=== PATIENT | female | born 1945 | race Caucasian/White ===

== ENCOUNTER 2017-11-21 04:45 | Inpatient (IN) | payer OTHER ==
[2017-11-21] MEDS ORDERED: DEXTROSE 50% 50 ML SYRINGE IV (05:30)
[2017-11-21] MEDS ORDERED: GLUCOSE GEL 15 GRAM TUBE PO ×2 (05:30)
[2017-11-21] MEDS ORDERED: ONDANSETRON 4 MG INJ IV (05:30)
[2017-11-21] MEDS ORDERED: GLUCOSE GEL 15 GRAM TUBE BUCCAL (05:30)
[2017-11-21] MEDS ORDERED: GLUCAGON 1 MG INJ IM (05:30)
[2017-11-21 06:10] LABS: ADD MAN DIFF? NO
[2017-11-21] MEDS: morphine 2 MG INJ IV ×4 (06:22→19:08)
[2017-11-21 06:29] LABS: BASOPHIL # 0.1 10^3/ul (0.0-0.1); BASOPHILS % 0.5 % (0.0-2.0); EOSINOPHILS # 0.3 10^3/ul (0.0-0.5); EOSINOPHILS % 2.3 % (0.0-7.0); HEMATOCRIT 26.7 % (37.0-47.0); HEMOGLOBIN 8.6 g/dl (12.0-16.0); LYMPHOCYTES # 1.8 10^3/ul (0.8-2.9); LYMPHOCYTES % 16.4 % (15.0-51.0); MEAN CORPUSCULAR HEMOGLOBIN 31.2 pg (29.0-33.0); MEAN CORPUSCULAR HGB CONC 32.2 g/dl (32.0-37.0); MEAN CORPUSCULAR VOLUME 96.7 fl (82.0-101.0); MONOCYTE # 0.8 10^3/ul (0.3-0.9); NEUTROPHIL # 8.1 10^3/ul (1.6-7.5); NEUTROPHILS % 73.4 % (39.0-77.0); PLATELET COUNT 195 10^3/UL (140-415); RED BLOOD COUNT 2.76 10^6/ul (4.20-5.40); RED CELL DISTRIBUTION WIDTH 12.1 % (11.5-14.5)
[2017-11-21 06:29] LABS: WHITE BLOOD COUNT 11.1 10^3/ul (4.8-10.8)
[2017-11-21 06:58] LABS: ANION GAP 17 (8-16); BLOOD UREA NITROGEN 34 mg/dl (7-20); CALCIUM 8.8 mg/dl (8.4-10.2); CARBON DIOXIDE 21 mmol/L (21-31); CHLORIDE 112 mmol/L (97-110); CREATININE 1.88 mg/dl (0.44-1.00); GLUCOSE 197 mg/dl (70-220); MAGNESIUM 2.5 mg/dl (1.7-2.5); PHOSPHORUS 5.3 mg/dl (2.5-4.9); SODIUM 145 mmol/L (135-144)
[2017-11-21] MEDS: INSULIN ASPART [NOVOLOG] 3 ML PEN SC ×3 (08:56→17:55)
[2017-11-21] MEDS ORDERED: NACL 0.9% 3 ML SYG IV (10:00)
[2017-11-21] MEDS ORDERED: ALBUTEROL/IPRATROPIUM (NEB) 3 ML AMP HHN (10:00)
[2017-11-21] MEDS: SOD CHLORIDE 0.9% 1,000 ML IV (10:30)
[2017-11-21] MEDS: HYDROCHLOROTHIAZIDE 25 MG TAB PO (11:22)
[2017-11-21] MEDS: LOSARTAN 50 MG TAB PO (11:23)
[2017-11-21] MEDS: SOD CHLORIDE 0.45% 1,000 ML IV ×2 (15:20→23:52)
[2017-11-21 18:49] LABS: TROPONIN-I < 0.012 ng/ml (0.000-0.120)
[2017-11-21] MEDS: METOPROLOL 25 MG TAB PO (21:02)
[2017-11-22 01:57] LABS: TROPONIN-I < 0.012 ng/ml (0.000-0.120)
[2017-11-22] MEDS ORDERED: ACCU-CHEK XX (02:00)
[2017-11-22] MEDS: morphine 2 MG INJ IV ×3 (02:54→20:00)
[2017-11-22 05:24] LABS: ADD MAN DIFF? NO
[2017-11-22 05:36] LABS: WHITE BLOOD COUNT 8.5 10^3/ul (4.8-10.8)
[2017-11-22 05:36] LABS: BASOPHIL # 0.1 10^3/ul (0.0-0.1); BASOPHILS % 0.6 % (0.0-2.0); EOSINOPHILS # 0.4 10^3/ul (0.0-0.5); EOSINOPHILS % 4.9 % (0.0-7.0); HEMATOCRIT 22.5 % (37.0-47.0); HEMOGLOBIN 7.5 g/dl (12.0-16.0); LYMPHOCYTES # 2.9 10^3/ul (0.8-2.9); LYMPHOCYTES % 33.7 % (15.0-51.0); MEAN CORPUSCULAR HEMOGLOBIN 32.3 pg (29.0-33.0); MEAN CORPUSCULAR HGB CONC 33.3 g/dl (32.0-37.0); MEAN PLATELET VOLUME 10.8 fl (7.4-10.4); MONOCYTE # 0.7 10^3/ul (0.3-0.9); MONOCYTES % 8.5 % (0.0-11.0); NEUTROPHIL # 4.4 10^3/ul (1.6-7.5); NEUTROPHILS % 51.9 % (39.0-77.0); PLATELET COUNT 175 10^3/UL (140-415); RED BLOOD COUNT 2.32 10^6/ul (4.20-5.40); RED CELL DISTRIBUTION WIDTH 11.9 % (11.5-14.5)
[2017-11-22 05:53] LABS: HEMOGLOBIN A1C 5.9 % (0-5.9)
[2017-11-22 06:00] LABS: ALANINE AMINOTRANSFERASE 22 IU/L (13-69); ALBUMIN 3.2 g/dl (3.3-4.9); ALBUMIN/GLOBULIN RATIO 1.18; ALKALINE PHOSPHATASE 98 IU/L (42-121); ANION GAP 15 (8-16); ASPARTATE AMINO TRANSFERASE 19 IU/L (15-46); BLOOD UREA NITROGEN 26 mg/dl (7-20); CALCIUM 8.3 mg/dl (8.4-10.2); CARBON DIOXIDE 25 mmol/L (21-31); CHLORIDE 106 mmol/L (97-110); CREATININE 1.95 mg/dl (0.44-1.00); GLUCOSE 101 mg/dl (70-220); MAGNESIUM 2.2 mg/dl (1.7-2.5); PHOSPHORUS 4.5 mg/dl (2.5-4.9); SODIUM 141 mmol/L (135-144); TOTAL PROTEIN 5.9 g/dl (6.1-8.1)
[2017-11-22 06:39] LABS: TROPONIN-I < 0.012 ng/ml (0.000-0.120)
[2017-11-22] MEDS: INSULIN ASPART [NOVOLOG] 3 ML PEN SC ×3 (07:50→17:55)
[2017-11-22] MEDS: METOPROLOL 25 MG TAB PO ×2 (08:42→22:32)
[2017-11-22] MEDS: HYDROCHLOROTHIAZIDE 25 MG TAB PO (08:42)
[2017-11-22] MEDS: ACETAMINOPHEN 325 MG TAB PO ×3 (08:43→23:24)
[2017-11-22] MEDS: LOSARTAN 50 MG TAB PO (08:43)
[2017-11-22] MEDS ORDERED: NON-FORMULARY/PATIENT OWN MED (Losartan-Hydrochlorothiazide (Losartan-HCTZ) 1 TAB) PO (09:00)
[2017-11-22] MEDS: SOD CHLORIDE 0.45% 1,000 ML IV ×2 (09:49→20:05)
[2017-11-22 22:45] LABS: IMMEDIATE SPIN CROSSMATCH 1 2
[2017-11-23] MEDS: SOD CHLORIDE 0.45% 1,000 ML IV (02:15)
[2017-11-23 05:37] LABS: ADD MAN DIFF? NO
[2017-11-23 05:42] LABS: BASOPHIL # 0.1 10^3/ul (0.0-0.1); BASOPHILS % 0.6 % (0.0-2.0); EOSINOPHILS # 0.5 10^3/ul (0.0-0.5); EOSINOPHILS % 5.4 % (0.0-7.0); HEMATOCRIT 27.9 % (37.0-47.0); HEMOGLOBIN 9.5 g/dl (12.0-16.0); LYMPHOCYTES # 2.5 10^3/ul (0.8-2.9); LYMPHOCYTES % 28.2 % (15.0-51.0); MEAN CORPUSCULAR HEMOGLOBIN 31.3 pg (29.0-33.0); MEAN CORPUSCULAR HGB CONC 34.1 g/dl (32.0-37.0); MEAN CORPUSCULAR VOLUME 91.8 fl (82.0-101.0); MEAN PLATELET VOLUME 10.9 fl (7.4-10.4); MONOCYTE # 0.8 10^3/ul (0.3-0.9); MONOCYTES % 9.4 % (0.0-11.0); NEUTROPHILS % 56.1 % (39.0-77.0); PLATELET COUNT 154 10^3/UL (140-415); RED BLOOD COUNT 3.04 10^6/ul (4.20-5.40); RED CELL DISTRIBUTION WIDTH 13.4 % (11.5-14.5)
[2017-11-23 05:42] LABS: WHITE BLOOD COUNT 8.9 10^3/ul (4.8-10.8)
[2017-11-23 05:54] LABS: ANION GAP 14 (8-16); BLOOD UREA NITROGEN 26 mg/dl (7-20); CALCIUM 8.2 mg/dl (8.4-10.2); CARBON DIOXIDE 25 mmol/L (21-31); CHLORIDE 107 mmol/L (97-110); CREATININE 1.85 mg/dl (0.44-1.00); GLUCOSE 89 mg/dl (70-220); POTASSIUM 4.8 mmol/L (3.5-5.1); SODIUM 141 mmol/L (135-144)
[2017-11-23 06:07] LABS: IRON 57 ug/dl (35-150)
[2017-11-23 06:16] LABS: % IRON SATURATION 24 % SAT (22-52); TOTAL IRON BINDING CAPACITY 235 ug/dl (241-421)
[2017-11-23] MEDS: morphine 2 MG INJ IV ×2 (07:23→13:27)
[2017-11-23] MEDS: INSULIN ASPART [NOVOLOG] 3 ML PEN SC ×3 (07:50→17:12)
[2017-11-23] MEDS: HYDROCHLOROTHIAZIDE 25 MG TAB PO (08:09)
[2017-11-23] MEDS: METOPROLOL 25 MG TAB PO ×2 (08:10→20:49)
[2017-11-23] MEDS: LOSARTAN 50 MG TAB PO (08:13)
[2017-11-23] MEDS: morphine LIQ (10 MG/5 ML) CUP PO (20:01)
[2017-11-24] MEDS: morphine LIQ (10 MG/5 ML) CUP PO (00:15)
[2017-11-24] MEDS: HYDROCHLOROTHIAZIDE 25 MG TAB PO (09:00)
[2017-11-24] MEDS: INSULIN ASPART [NOVOLOG] 3 ML PEN SC ×4 (09:00→21:00)
[2017-11-24] MEDS: METOPROLOL 25 MG TAB PO (10:01)
[2017-11-24] MEDS: LOSARTAN 50 MG TAB PO (10:02)
[2017-11-24] MEDS: morphine 2 MG INJ IV (13:11)
[2017-11-24] MEDS: DEXTROSE 50% 50 ML SYRINGE IV (13:26)
[2017-11-24] MEDS ORDERED: ETOMIDATE 20 MG INJ (17:29)
[2017-11-24] MEDS ORDERED: FENTAnyl 50 MCG/ML VIAL (17:29)
[2017-11-24] MEDS ORDERED: MIDAZOLAM 1 MG/ML 2 ML INJ (17:29)
[2017-11-24] MEDS ORDERED: hydrALAzine 20 MG INJ IV (17:30)
[2017-11-24] MEDS ORDERED: HYDROmorphONE 1 MG/5 ML IV SYRINGE IV (17:30)
[2017-11-24] MEDS ORDERED: LABETALOL HCL 20MG INJ IV (17:30)
[2017-11-24] MEDS ORDERED: FAMOTIDINE 20 MG INJ (18:04)
[2017-11-24] MEDS ORDERED: ONDANSETRON 4 MG INJ (18:04)
[2017-11-24] MEDS ORDERED: CEFAZOLIN 1 GM INJ (18:06)
[2017-11-24] MEDS ORDERED: PHENYLephrine (100 MCG/ML) 10ML SYG (18:14)
[2017-11-24] MEDS: POLYMYXIN/BACITRACIN 1L IRRIG (18:42)
[2017-11-24] MEDS ORDERED: LIDOCAINE 2% (SDV) 5 ML INJ (18:59)
[2017-11-24] MEDS ORDERED: NALOXONE (0.4 MG/ML) INJ IV (19:30)
[2017-11-24] MEDS ORDERED: morphine 2 MG INJ IV (21:00)
[2017-11-24] MEDS ORDERED: NACL 0.9% 3 ML SYG IV (21:00)
[2017-11-24] MEDS: ONDANSETRON 4 MG INJ IV (21:29)
[2017-11-24] MEDS: FENTAnyl 2MCG/ML-ROPIV 0.2% 100 ML BAG EPI (21:35)
[2017-11-24] MEDS: CEFAZOLIN 1 GM/50 ML (PMX) 50 ML IVPB (22:23)
[2017-11-24] MEDS: SOD CHLORIDE 0.9% 1,000 ML IV (22:28)
[2017-11-25] MEDS: METOPROLOL 25 MG TAB PO ×3 (00:31→20:09)
[2017-11-25] MEDS: ACCUCHECK AT 2AM (Patients on SS coverage) XX (02:00)
[2017-11-25] MEDS: ACETAMINOPHEN 325 MG TAB PO ×2 (04:23→12:33)
[2017-11-25] MEDS: FENTAnyl 2MCG/ML-ROPIV 0.2% 100 ML BAG EPI ×2 (04:40→18:16)
[2017-11-25] MEDS: CEFAZOLIN 1 GM/50 ML (PMX) 50 ML IVPB ×2 (05:31→12:34)
[2017-11-25] MEDS: SOD CHLORIDE 0.9% 1,000 ML IV ×3 (05:35→21:28)
[2017-11-25] MEDS: HYDROCHLOROTHIAZIDE 25 MG TAB PO (08:53)
[2017-11-25] MEDS: LOSARTAN 50 MG TAB PO (08:54)
[2017-11-25] MEDS: INSULIN ASPART [NOVOLOG] 3 ML PEN SC ×4 (08:55→21:12)
[2017-11-25] MEDS: ENOXAPARIN 30 MG/0.3 ML SYG SC (10:29)
[2017-11-26] MEDS: ACCUCHECK AT 2AM (Patients on SS coverage) XX (02:00)
[2017-11-26] MEDS: FENTAnyl 2MCG/ML-ROPIV 0.2% 100 ML BAG EPI ×2 (02:58→18:24)
[2017-11-26] MEDS: INSULIN ASPART [NOVOLOG] 3 ML PEN SC ×4 (07:50→21:00)
[2017-11-26] MEDS: LOSARTAN 50 MG TAB PO (08:43)
[2017-11-26] MEDS: HYDROCHLOROTHIAZIDE 25 MG TAB PO (08:43)
[2017-11-26] MEDS: METOPROLOL 25 MG TAB PO ×2 (08:43→20:59)
[2017-11-26] MEDS: morphine LIQ (10 MG/5 ML) CUP PO ×2 (08:45→13:31)
[2017-11-26] MEDS: ENOXAPARIN 30 MG/0.3 ML SYG SC (08:52)
[2017-11-26] MEDS: SOD CHLORIDE 0.9% 1,000 ML IV (12:35)
[2017-11-26] MEDS: DOCUSATE SODIUM 100 MG CAP PO (20:59)
[2017-11-26] MEDS: BISACODYL 10 MG SUPP PR (21:00)
[2017-11-27] MEDS: FENTAnyl 2MCG/ML-ROPIV 0.2% 100 ML BAG EPI ×2 (01:03→17:50)
[2017-11-27] MEDS: ACCUCHECK AT 2AM (Patients on SS coverage) XX (02:00)
[2017-11-27] MEDS: HYDROCHLOROTHIAZIDE 25 MG TAB PO (08:58)
[2017-11-27] MEDS: LOSARTAN 50 MG TAB PO (08:59)
[2017-11-27] MEDS: DOCUSATE SODIUM 100 MG CAP PO ×2 (09:00→21:00)
[2017-11-27] MEDS: METOPROLOL 25 MG TAB PO ×2 (09:00→21:26)
[2017-11-27] MEDS: INSULIN ASPART [NOVOLOG] 3 ML PEN SC ×4 (09:06→21:00)
[2017-11-27] MEDS: HYDROCODONE/APAP (5/325) TAB PO (18:16)
[2017-11-28] MEDS: ACCUCHECK AT 2AM (Patients on SS coverage) XX (02:00)
[2017-11-28] MEDS: INSULIN ASPART [NOVOLOG] 3 ML PEN SC ×4 (07:50→20:58)
[2017-11-28] MEDS: DOCUSATE SODIUM 100 MG CAP PO ×2 (09:00→20:58)
[2017-11-28] MEDS: HYDROCHLOROTHIAZIDE 25 MG TAB PO (09:25)
[2017-11-28] MEDS: LOSARTAN 50 MG TAB PO (09:26)
[2017-11-28] MEDS: HYDROCODONE/APAP (5/325) TAB PO ×2 (09:26→13:20)
[2017-11-28] MEDS: METOPROLOL 25 MG TAB PO ×2 (09:27→20:56)
[2017-11-28] MEDS: ENOXAPARIN 30 MG/0.3 ML SYG SC (09:35)
[2017-11-29] MEDS: ACCUCHECK AT 2AM (Patients on SS coverage) XX (01:20)
[2017-11-29] MEDS: HYDROCODONE/APAP (5/325) TAB PO ×4 (04:34→21:15)
[2017-11-29] MEDS: INSULIN ASPART [NOVOLOG] 3 ML PEN SC ×4 (07:50→21:00)
[2017-11-29] MEDS: METOPROLOL 25 MG TAB PO ×2 (08:41→21:17)
[2017-11-29] MEDS: HYDROCHLOROTHIAZIDE 25 MG TAB PO (08:41)
[2017-11-29] MEDS: DOCUSATE SODIUM 100 MG CAP PO ×3 (08:42→21:15)
[2017-11-29] MEDS: LOSARTAN 50 MG TAB PO (08:42)
[2017-11-29] MEDS: ENOXAPARIN 30 MG/0.3 ML SYG SC (08:43)
[2017-11-30] MEDS: HYDROCODONE/APAP (5/325) TAB PO ×4 (00:14→19:33)
[2017-11-30] MEDS: ACCUCHECK AT 2AM (Patients on SS coverage) XX (02:00)
[2017-11-30] MEDS: INSULIN ASPART [NOVOLOG] 3 ML PEN SC ×4 (07:50→21:00)
[2017-11-30] MEDS: DOCUSATE SODIUM 100 MG CAP PO ×3 (08:34→21:05)
[2017-11-30] MEDS: METOPROLOL 25 MG TAB PO ×2 (08:35→21:05)
[2017-11-30] MEDS: HYDROCHLOROTHIAZIDE 25 MG TAB PO (08:35)
[2017-11-30] MEDS: LOSARTAN 50 MG TAB PO (08:35)
[2017-11-30] MEDS: ENOXAPARIN 30 MG/0.3 ML SYG SC (08:36)
[2017-12-01] MEDS: ACCUCHECK AT 2AM (Patients on SS coverage) XX (02:00)
[2017-12-01] MEDS: INSULIN ASPART [NOVOLOG] 3 ML PEN SC ×4 (07:43→21:14)
[2017-12-01] MEDS: DOCUSATE SODIUM 100 MG CAP PO ×2 (09:29→21:10)
[2017-12-01] MEDS: LOSARTAN 50 MG TAB PO (09:30)
[2017-12-01] MEDS: HYDROCHLOROTHIAZIDE 25 MG TAB PO (09:30)
[2017-12-01] MEDS: HYDROCODONE/APAP (5/325) TAB PO ×2 (09:31→21:22)
[2017-12-01] MEDS: METOPROLOL 25 MG TAB PO ×2 (09:31→21:10)
[2017-12-01] MEDS: ENOXAPARIN 30 MG/0.3 ML SYG SC (09:36)
[2017-12-02] MEDS: ACCUCHECK AT 2AM (Patients on SS coverage) XX (02:11)
[2017-12-02] MEDS: HYDROCHLOROTHIAZIDE 25 MG TAB PO (09:04)
[2017-12-02] MEDS: DOCUSATE SODIUM 100 MG CAP PO (09:04)
[2017-12-02] MEDS: METOPROLOL 25 MG TAB PO (09:05)
[2017-12-02] MEDS: LOSARTAN 50 MG TAB PO (09:05)
[2017-12-02] MEDS: ENOXAPARIN 30 MG/0.3 ML SYG SC (09:06)
[2017-12-02] MEDS: INSULIN ASPART [NOVOLOG] 3 ML PEN SC ×3 (09:07→17:34)
[2017-12-02] MEDS: HYDROCODONE/APAP (5/325) TAB PO ×3 (09:12→18:35)
== END 2017-12-02 19:20 | DRG 493 ==
LOC: MS1 04:45
PROC: 0QSH06Z Reposition Left Tibia with Intramedullary Internal Fixation Device, Open Approach (ICD-10-PCS; principal; 2017-11-24 16:00)
PROC: 30233N1 Transfusion of Nonautologous Red Blood Cells into Peripheral Vein, Percutaneous Approach (ICD-10-PCS; 2017-11-24 17:26)
DX: S82.102A Unspecified fracture of upper end of left tibia, initial encounter for closed fracture (principal); E87.0 Hyperosmolality and hypernatremia; N17.9 Acute kidney failure, unspecified; M84.652A Pathological fracture in other disease, left femur, initial encounter for fracture; I12.9 Hypertensive chronic kidney disease with stage 1 through stage 4 chronic kidney disease, or unspecified chronic kidney disease; E11.22 Type 2 diabetes mellitus with diabetic chronic kidney disease; N18.9 Chronic kidney disease, unspecified; D64.9 Anemia, unspecified
CPT/HCPCS: 36430; 71045; 73510; 73550; 73590; 73610; 76775; 80048; 80053; 82962; 83036; 83540; 83735; 84100; 84484; 85025; 86850; 86900; 86901; 86920; 93005; 93306; 97110; 97116; 97163; 97530

== ENCOUNTER 2018-01-07 08:41 | Inpatient (IN) | payer OTHER ==
[2018-01-07 09:27] LABS: ADD MAN DIFF? NO
[2018-01-07 09:31] LABS: BASOPHILS % 0.3 % (0.0-2.0); EOSINOPHILS # 0.1 10^3/ul (0.0-0.5); EOSINOPHILS % 0.8 % (0.0-7.0); HEMATOCRIT 28.7 % (37.0-47.0); HEMOGLOBIN 9.8 g/dl (12.0-16.0); LYMPHOCYTES # 1.1 10^3/ul (0.8-2.9); LYMPHOCYTES % 9.3 % (15.0-51.0); MEAN CORPUSCULAR HEMOGLOBIN 31.5 pg (29.0-33.0); MEAN CORPUSCULAR HGB CONC 34.1 g/dl (32.0-37.0); MEAN CORPUSCULAR VOLUME 92.3 fl (82.0-101.0); MEAN PLATELET VOLUME 10.3 fl (7.4-10.4); MONOCYTE # 0.3 10^3/ul (0.3-0.9); MONOCYTES % 2.6 % (0.0-11.0); NEUTROPHIL # 10.5 10^3/ul (1.6-7.5); NEUTROPHILS % 86.3 % (39.0-77.0); PLATELET COUNT 222 10^3/UL (140-415); RED BLOOD COUNT 3.11 10^6/ul (4.20-5.40); RED CELL DISTRIBUTION WIDTH 12.4 % (11.5-14.5)
[2018-01-07 09:31] LABS: WHITE BLOOD COUNT 12.2 10^3/ul (4.8-10.8)
[2018-01-07] MEDS: ONDANSETRON 4 MG INJ IV (09:49)
[2018-01-07] MEDS: SODIUM CHLORIDE 0.9% 1L BAG IV* (09:49)
[2018-01-07] MEDS: CEFEPIME 2GM/50 ML (PMX) 50 ML IVPB (09:49)
[2018-01-07 09:50] LABS: INR 0.93; PARTIAL THROMBOPLASTIN TIME 24.1 Sec (25.0-35.0); PROTIME 12.5 Sec (11.9-14.9)
[2018-01-07 09:59] LABS: ALANINE AMINOTRANSFERASE 27 IU/L (13-69); ALBUMIN 3.9 g/dl (3.3-4.9); ALKALINE PHOSPHATASE 263 IU/L (42-121); AMYLASE 62 U/L (11-123); ANION GAP 18 (8-16); ASPARTATE AMINO TRANSFERASE 33 IU/L (15-46); BILIRUBIN,INDIRECT 1.1 mg/dl (0-1.1); BILIRUBIN,TOTAL 1.1 mg/dl (0.2-1.3); BLOOD UREA NITROGEN 39 mg/dl (7-20); CALCIUM 9.3 mg/dl (8.4-10.2); CARBON DIOXIDE 19 mmol/L (21-31); CHLORIDE 107 mmol/L (97-110); CREATININE 1.63 mg/dl (0.44-1.00); GLUCOSE 209 mg/dl (70-220); LIPASE 35 U/L (23-300); POTASSIUM 4.5 mmol/L (3.5-5.1); SODIUM 139 mmol/L (135-144); TOTAL PROTEIN 6.9 g/dl (6.1-8.1)
[2018-01-07 10:08] LABS: TROPONIN-I < 0.010 ng/ml (0.000-0.120)
[2018-01-07] MEDS: VANCOMYCIN 1 GM (PMX) 250 ML IVPB (10:50)
[2018-01-07] MEDS: IOHEXOL 300MG/ML 150 ML BTL (11:17)
[2018-01-07 11:24] LABS: ADD UMIC YES; UR ASCORBIC ACID 20 mg/dL (NEGATIVE); UR BACTERIA FEW /HPF (NONE SEEN); UR BILIRUBIN (Dip) NEGATIVE (NEGATIVE); UR BLOOD (Dip) 1+ mg/dL (NEGATIVE); UR CLARITY SLIGHTLY CLOUDY (CLEAR); UR COLOR YELLOW (YELLOW); UR GLUCOSE (Dip) NEGATIVE (NEGATIVE); UR KETONES (Dip) NEGATIVE (NEGATIVE); UR LEUKOCYTE ESTERASE (Dip) 3+ Leu/ul (NEGATIVE); UR NITRITE (Dip) POSITIVE (NEGATIVE); UR RBC 6 /HPF (0-5); UR SPECIFIC GRAVITY (Dip) 1.011 (1.003-1.030); UR SQUAMOUS EPITHELIAL CELL FEW /HPF (FEW); UR TOTAL PROTEIN (Dip) 1+ mg/dl (NEGATIVE); UR UROBILINOGEN (Dip) NEGATIVE (NEGATIVE); UR WBC 21 /HPF (0-5)
[2018-01-07] MEDS: IODIXANOL LOCM 100 ML BTL (11:30)
[2018-01-07] MEDS: SOD CHLORIDE 0.9% 100 ML (11:30)
[2018-01-07] MEDS: IBUPROFEN 800 MG TAB PO (12:20)
[2018-01-07] MEDS: ACETAMINOPHEN 500 MG TAB PO (12:20)
[2018-01-07 13:34] LABS: LACTIC ACID 1.1 mmol/L (0.5-2.0)
[2018-01-07] MEDS ORDERED: ONDANSETRON 4 MG INJ IV ×2 (14:00→15:00)
[2018-01-07] MEDS ORDERED: ACETAMINOPHEN 325 MG TAB PO ×2 (14:00→15:00)
[2018-01-07] MEDS ORDERED: NACL 0.9% 3 ML SYG IV (15:00)
[2018-01-07 15:12] LABS: LACTIC ACID 1.2 mmol/L (0.5-2.0)
[2018-01-07] MEDS ORDERED: GLUCAGON 1 MG INJ IM (16:00)
[2018-01-07] MEDS ORDERED: DEXTROSE 50% 50 ML SYRINGE IV ×2 (16:00)
[2018-01-07] MEDS ORDERED: GLUCOSE GEL 15 GRAM TUBE BUCCAL (16:00)
[2018-01-07] MEDS ORDERED: GLUCOSE GEL 15 GRAM TUBE PO ×2 (16:00)
[2018-01-07] MEDS: SOD CHLORIDE 0.9% 1,000 ML IV ×2 (17:30→22:31)
[2018-01-07] MEDS: INSULIN ASPART [NOVOLOG] 3 ML PEN SC ×2 (18:00→23:21)
[2018-01-07] MEDS: IBUPROFEN 400 MG TAB PO ×2 (18:37→23:45)
[2018-01-07] MEDS: INSULIN GLARGINE [LANTus] (100 UNITS/ML) SYG SC ×2 (20:00→23:16)
[2018-01-07] MEDS: MEROPENEM 1 GM/50ML(PMX) 50 ML IVPB ×2 (21:00→23:09)
[2018-01-07] MEDS: HYDROCODONE/APAP (5/325) TAB PO (21:38)
[2018-01-07] MEDS: HEPARIN 5,000 UNIT/0.5 ML VIAL SC (21:43)
[2018-01-07 23:32] LABS: LACTIC ACID 1.7 mmol/L (0.5-2.0)
[2018-01-08] MEDS: ACCU-CHEK XX (02:00)
[2018-01-08] MEDS: SOD CHLORIDE 0.9% 1,000 ML IV ×4 (03:29→23:57)
[2018-01-08] MEDS: IBUPROFEN 400 MG TAB PO ×3 (05:58→17:22)
[2018-01-08 06:04] LABS: ADD MAN DIFF? NO
[2018-01-08 06:15] LABS: BASOPHILS % 0.3 % (0.0-2.0); EOSINOPHILS # 0.2 10^3/ul (0.0-0.5); EOSINOPHILS % 1.8 % (0.0-7.0); HEMATOCRIT 24.4 % (37.0-47.0); HEMOGLOBIN 8.1 g/dl (12.0-16.0); LYMPHOCYTES % 18.4 % (15.0-51.0); MEAN CORPUSCULAR HEMOGLOBIN 30.7 pg (29.0-33.0); MEAN CORPUSCULAR HGB CONC 33.2 g/dl (32.0-37.0); MEAN CORPUSCULAR VOLUME 92.4 fl (82.0-101.0); MEAN PLATELET VOLUME 10.9 fl (7.4-10.4); MONOCYTES % 9.2 % (0.0-11.0); NEUTROPHIL # 7.7 10^3/ul (1.6-7.5); NEUTROPHILS % 69.8 % (39.0-77.0); PLATELET COUNT 170 10^3/UL (140-415); RED BLOOD COUNT 2.64 10^6/ul (4.20-5.40)
[2018-01-08 06:42] LABS: HEMOGLOBIN A1C 5.6 % (0-5.9)
[2018-01-08 06:49] LABS: ALANINE AMINOTRANSFERASE 32 IU/L (13-69); ALBUMIN/GLOBULIN RATIO 1.11; ALKALINE PHOSPHATASE 230 IU/L (42-121); ANION GAP 11 (8-16); ASPARTATE AMINO TRANSFERASE 30 IU/L (15-46); BILIRUBIN,INDIRECT 0.6 mg/dl (0-1.1); BILIRUBIN,TOTAL 0.6 mg/dl (0.2-1.3); BLOOD UREA NITROGEN 35 mg/dl (7-20); CALCIUM 7.8 mg/dl (8.4-10.2); CARBON DIOXIDE 22 mmol/L (21-31); CHLORIDE 114 mmol/L (97-110); CHOLESTEROL 125 mg/dl (100-200); CREATININE 1.74 mg/dl (0.44-1.00); GLUCOSE 151 mg/dl (70-220); HDL CHOLESTEROL 25 mg/dl (33-92); LDL CHOLESTEROL,CALCULATED 52 mg/dl; PHOSPHORUS 3.7 mg/dl (2.5-4.9); POTASSIUM 3.8 mmol/L (3.5-5.1); SODIUM 143 mmol/L (135-144); TOTAL PROTEIN 5.7 g/dl (6.1-8.1); TRIGLYCERIDES 238 mg/dl (0-149)
[2018-01-08 07:15] LABS: THYROID STIMULATING HORMONE 0.218 MIU/L (0.465-4.680)
[2018-01-08] MEDS: LEVOTHYROXINE 25 MCG TAB PO (07:39)
[2018-01-08] MEDS: SOD CHLORIDE 0.9% 500 ML IV ×2 (07:44→10:20)
[2018-01-08] MEDS: INSULIN ASPART [NOVOLOG] 3 ML PEN SC ×4 (08:03→20:34)
[2018-01-08] MEDS: ASPIRIN (EC) 81 MG TAB PO (08:26)
[2018-01-08] MEDS: MEROPENEM 1 GM/50ML(PMX) 50 ML IVPB ×2 (08:26→20:27)
[2018-01-08] MEDS: HEPARIN 5,000 UNIT/0.5 ML VIAL SC ×2 (08:43→20:30)
[2018-01-08] MEDS ORDERED: PROPRANOLOL 40 MG TAB PO (09:00)
[2018-01-08] MEDS ORDERED: NON-FORMULARY/PATIENT OWN MED (Losartan-Hydrochlorothiazide (Losartan-HCTZ) 1 TAB) PO (09:00)
[2018-01-08] MEDS: PROPRANOLOL 20 MG TAB PO (11:52)
[2018-01-08] MEDS: INSULIN GLARGINE [LANTus] (100 UNITS/ML) SYG SC (20:33)
[2018-01-08] MEDS: HYDROCODONE/APAP (5/325) TAB PO (20:41)
[2018-01-09] MEDS: ACCU-CHEK XX (02:00)
[2018-01-09] MEDS: IBUPROFEN 400 MG TAB PO ×2 (05:45)
[2018-01-09 06:05] LABS: ADD MAN DIFF? NO
[2018-01-09 06:09] LABS: BASOPHIL # 0.1 10^3/ul (0.0-0.1); BASOPHILS % 0.7 % (0.0-2.0); EOSINOPHILS # 0.3 10^3/ul (0.0-0.5); EOSINOPHILS % 3.8 % (0.0-7.0); HEMATOCRIT 25.8 % (37.0-47.0); HEMOGLOBIN 8.5 g/dl (12.0-16.0); IMMATURE GRANS #M 0.04 10^3/ul; IMMATURE GRANS % (M) 0.5 %; LYMPHOCYTES # 1.7 10^3/ul (0.8-2.9); LYMPHOCYTES % 21.1 % (15.0-51.0); MEAN CORPUSCULAR HEMOGLOBIN 30.6 pg (29.0-33.0); MEAN CORPUSCULAR HGB CONC 32.9 g/dl (32.0-37.0); MEAN CORPUSCULAR VOLUME 92.8 fl (82.0-101.0); MEAN PLATELET VOLUME 10.9 fl (7.4-10.4); MONOCYTE # 0.9 10^3/ul (0.3-0.9); MONOCYTES % 10.7 % (0.0-11.0); NEUTROPHIL # 5.2 10^3/ul (1.6-7.5); NEUTROPHILS % 63.2 % (39.0-77.0); PLATELET COUNT 194 10^3/UL (140-415); RED BLOOD COUNT 2.78 10^6/ul (4.20-5.40)
[2018-01-09 06:09] LABS: WHITE BLOOD COUNT 8.2 10^3/ul (4.8-10.8)
[2018-01-09 06:42] LABS: ANION GAP 11 (8-16); BLOOD UREA NITROGEN 28 mg/dl (7-20); CALCIUM 8.3 mg/dl (8.4-10.2); CARBON DIOXIDE 21 mmol/L (21-31); CHLORIDE 116 mmol/L (97-110); CREATININE 1.87 mg/dl (0.44-1.00); GLUCOSE 111 mg/dl (70-220); POTASSIUM 4.4 mmol/L (3.5-5.1); SODIUM 144 mmol/L (135-144)
[2018-01-09] MEDS: INSULIN ASPART [NOVOLOG] 3 ML PEN SC ×4 (07:50→21:00)
[2018-01-09] MEDS: ASPIRIN (EC) 81 MG TAB PO (09:01)
[2018-01-09] MEDS: HEPARIN 5,000 UNIT/0.5 ML VIAL SC ×2 (09:27→21:47)
[2018-01-09] MEDS: LIDOCAINE 1% (MPF) 5 ML VIAL SC (10:40)
[2018-01-09] MEDS: MEROPENEM 1 GM/50ML(PMX) 50 ML IVPB ×2 (12:34→21:45)
[2018-01-09] MEDS: SOD CHLORIDE 0.9% 1,000 ML IV ×3 (12:35→14:59)
[2018-01-09] MEDS: PROPRANOLOL 20 MG TAB PO (12:35)
[2018-01-09 13:28] LABS: CREATININE,URINE RANDOM 34.94 mg/dl (20-320)
[2018-01-09] MEDS: HYDROCODONE/APAP (5/325) TAB PO (16:48)
[2018-01-09] MEDS ORDERED: BISACODYL (EC) 5 MG TAB PO (17:00)
[2018-01-09] MEDS ORDERED: LACTULOSE 30ML CUP PO (17:30)
[2018-01-09] MEDS: DOCUSATE SODIUM 100 MG CAP PO (21:45)
[2018-01-09] MEDS: INSULIN GLARGINE [LANTus] (100 UNITS/ML) SYG SC (21:54)
[2018-01-10] MEDS: ACCU-CHEK XX (02:00)
[2018-01-10 05:44] LABS: ADD MAN DIFF? NO; HAAIG REFLEX REFLEX FILED
[2018-01-10 05:45] LABS: BASOPHIL # 0.1 10^3/ul (0.0-0.1); BASOPHILS % 0.6 % (0.0-2.0); EOSINOPHILS # 0.3 10^3/ul (0.0-0.5); HEMATOCRIT 24.4 % (37.0-47.0); HEMOGLOBIN 8.4 g/dl (12.0-16.0); IMMATURE GRANS #M 0.04 10^3/ul; IMMATURE GRANS % (M) 0.5 %; LYMPHOCYTES # 2.5 10^3/ul (0.8-2.9); LYMPHOCYTES % 29.6 % (15.0-51.0); MEAN CORPUSCULAR HEMOGLOBIN 30.8 pg (29.0-33.0); MEAN CORPUSCULAR HGB CONC 34.4 g/dl (32.0-37.0); MEAN CORPUSCULAR VOLUME 89.4 fl (82.0-101.0); MEAN PLATELET VOLUME 10.7 fl (7.4-10.4); MONOCYTE # 0.8 10^3/ul (0.3-0.9); MONOCYTES % 9.9 % (0.0-11.0); NEUTROPHIL # 4.6 10^3/ul (1.6-7.5); NEUTROPHILS % 55.4 % (39.0-77.0); PLATELET COUNT 227 10^3/UL (140-415); RED BLOOD COUNT 2.73 10^6/ul (4.20-5.40); RED CELL DISTRIBUTION WIDTH 12.9 % (11.5-14.5)
[2018-01-10 05:45] LABS: WHITE BLOOD COUNT 8.3 10^3/ul (4.8-10.8)
[2018-01-10 06:09] LABS: PHOSPHORUS 3.4 mg/dl (2.5-4.9)
[2018-01-10 06:13] LABS: ANION GAP 14 (8-16); BLOOD UREA NITROGEN 19 mg/dl (7-20); CALCIUM 8.7 mg/dl (8.4-10.2); CARBON DIOXIDE 19 mmol/L (21-31); CHLORIDE 114 mmol/L (97-110); CREATININE 1.39 mg/dl (0.44-1.00); GLUCOSE 95 mg/dl (70-220); POTASSIUM 4.1 mmol/L (3.5-5.1); SODIUM 143 mmol/L (135-144)
[2018-01-10 06:43] LABS: HEPATITIS B SURFACE ANTIGEN NEGATIVE (NEGATIVE)
[2018-01-10 07:00] LABS: HEPATITIS B CORE ANTIBODY NEGATIVE (NEGATIVE); HEPATITIS C VIRAL ANTIBODY NEGATIVE (NEGATIVE); HIV 1&2 ANTIBODY NEGATIVE (NEGATIVE)
[2018-01-10] MEDS: INSULIN ASPART [NOVOLOG] 3 ML PEN SC ×4 (07:56→20:45)
[2018-01-10] MEDS: ASPIRIN (EC) 81 MG TAB PO (08:56)
[2018-01-10] MEDS: DOCUSATE SODIUM 100 MG CAP PO ×2 (08:56→20:27)
[2018-01-10] MEDS: PROPRANOLOL 20 MG TAB PO (08:57)
[2018-01-10] MEDS: MEROPENEM 1 GM/50ML(PMX) 50 ML IVPB ×2 (08:57→20:45)
[2018-01-10] MEDS: HEPARIN 5,000 UNIT/0.5 ML VIAL SC ×2 (09:12→20:45)
[2018-01-10] MEDS: SOD CHLORIDE 0.9% 1,000 ML IV ×2 (13:17→18:42)
[2018-01-10] MEDS: HYDROCODONE/APAP (5/325) TAB PO ×2 (13:35→21:27)
[2018-01-10] MEDS: INSULIN GLARGINE [LANTus] (100 UNITS/ML) SYG SC (20:30)
[2018-01-11] MEDS: ACCU-CHEK XX (02:00)
[2018-01-11 05:51] LABS: ADD MAN DIFF? NO
[2018-01-11 06:01] LABS: BASOPHIL # 0.1 10^3/ul (0.0-0.1); BASOPHILS % 0.8 % (0.0-2.0); EOSINOPHILS # 0.4 10^3/ul (0.0-0.5); EOSINOPHILS % 4.7 % (0.0-7.0); HEMATOCRIT 24.2 % (37.0-47.0); HEMOGLOBIN 8.1 g/dl (12.0-16.0); IMMATURE GRANS #M 0.06 10^3/ul; IMMATURE GRANS % (M) 0.8 %; LYMPHOCYTES # 3.2 10^3/ul (0.8-2.9); LYMPHOCYTES % 40.8 % (15.0-51.0); MEAN CORPUSCULAR HEMOGLOBIN 30.7 pg (29.0-33.0); MEAN CORPUSCULAR HGB CONC 33.5 g/dl (32.0-37.0); MEAN CORPUSCULAR VOLUME 91.7 fl (82.0-101.0); MEAN PLATELET VOLUME 10.6 fl (7.4-10.4); MONOCYTE # 0.8 10^3/ul (0.3-0.9); MONOCYTES % 9.8 % (0.0-11.0); NEUTROPHIL # 3.3 10^3/ul (1.6-7.5); NEUTROPHILS % 43.1 % (39.0-77.0); PLATELET COUNT 229 10^3/UL (140-415); RED BLOOD COUNT 2.64 10^6/ul (4.20-5.40); RED CELL DISTRIBUTION WIDTH 12.8 % (11.5-14.5)
[2018-01-11 06:01] LABS: WHITE BLOOD COUNT 7.7 10^3/ul (4.8-10.8)
[2018-01-11 06:19] LABS: ALANINE AMINOTRANSFERASE 17 IU/L (13-69); ALBUMIN/GLOBULIN RATIO 0.96; ALKALINE PHOSPHATASE 296 IU/L (42-121); ANION GAP 11 (8-16); ASPARTATE AMINO TRANSFERASE 20 IU/L (15-46); BILIRUBIN,INDIRECT 0.3 mg/dl (0-1.1); BILIRUBIN,TOTAL 0.3 mg/dl (0.2-1.3); BLOOD UREA NITROGEN 16 mg/dl (7-20); CALCIUM 8.8 mg/dl (8.4-10.2); CARBON DIOXIDE 24 mmol/L (21-31); CHLORIDE 112 mmol/L (97-110); CREATININE 1.24 mg/dl (0.44-1.00); GLUCOSE 73 mg/dl (70-220); MAGNESIUM 1.9 mg/dl (1.7-2.5); PHOSPHORUS 3.6 mg/dl (2.5-4.9); POTASSIUM 3.8 mmol/L (3.5-5.1); SODIUM 143 mmol/L (135-144); TOTAL PROTEIN 6.1 g/dl (6.1-8.1)
[2018-01-11] MEDS: INSULIN ASPART [NOVOLOG] 3 ML PEN SC ×2 (07:49→11:55)
[2018-01-11] MEDS: MEROPENEM 1 GM/50ML(PMX) 50 ML IVPB (08:36)
[2018-01-11] MEDS: ASPIRIN (EC) 81 MG TAB PO (08:36)
[2018-01-11] MEDS: DOCUSATE SODIUM 100 MG CAP PO (08:36)
[2018-01-11] MEDS: PROPRANOLOL 20 MG TAB PO (08:37)
[2018-01-11] MEDS: HEPARIN 5,000 UNIT/0.5 ML VIAL SC (08:49)
[2018-01-11] MEDS: SOD CHLORIDE 0.9% 1,000 ML IV ×2 (10:53→14:17)
[2018-01-11] MEDS: hydrALAzine 20 MG INJ IV (12:17)
== END 2018-01-11 16:22 | disposition home health service (06) | DRG 871 ==
LOC: E/R 08:41 → 6WM 13:49
PROC: 02HV33Z Insertion of Infusion Device into Superior Vena Cava, Percutaneous Approach (ICD-10-PCS; principal; 2018-01-09)
DX: A41.51 Sepsis due to Escherichia coli [E. coli] (principal); N17.0 Acute kidney failure with tubular necrosis; I12.9 Hypertensive chronic kidney disease with stage 1 through stage 4 chronic kidney disease, or unspecified chronic kidney disease; N18.9 Chronic kidney disease, unspecified; R65.20 Severe sepsis without septic shock; E11.22 Type 2 diabetes mellitus with diabetic chronic kidney disease; D64.89 Other specified anemias; S82.202D Unspecified fracture of shaft of left tibia, subsequent encounter for closed fracture with routine healing; S82.402D Unspecified fracture of shaft of left fibula, subsequent encounter for closed fracture with routine healing; X58.XXXD Exposure to other specified factors, subsequent encounter
CPT/HCPCS: 36415; 36569; 71045; 74177; 76775; 76937; 80048; 80053; 80061; 81001; 81003; 82150; 82962; 83036; 83605; 83690; 83735; 84100; 84155; 84443; 84484; 85025; 85610; 85730; 86703; 86704; 86709; 86803; 87040; 87086; 87340; 93005; 93970; 96374; 96375; 97116; 97161; 97530; 99291-25